=== PATIENT | female | born 2000 | race Two or more races ===

== ENCOUNTER 2021-01-13 11:25 | Emergency (ER) | payer OTHER ==
[~2021-01-13] VITALS: Ht 160 cm; Wt 61.2 kg
== END 2021-01-13 14:16 | disposition home or self-care (01) ==
LOC: ER 11:25
DX: S80.02XA Contusion of left knee, initial encounter (principal); W18.09XA Striking against other object with subsequent fall, initial encounter; Y93.89 Activity, other specified; Y92.89 Other specified places as the place of occurrence of the external cause; Y99.8 Other external cause status